=== PATIENT | male | born 1930 | race Caucasian/White ===

== ENCOUNTER 2017-08-27 11:11 | Emergency (ER) | payer MEDICARE ==
[~2017-08-27] VITALS: Ht 182.9 cm; Wt 83.0 kg
[2017-08-27] MEDS ORDERED: L.E.T SOLUTION TP ONE ×2 (12:00→12:42)
[2017-08-27] MEDS ORDERED: DIPH,PERTUSS(ACELL),TET VAC/PF 0.5 ML IM-VACC ONE ×2 (12:00→12:42)
[2017-08-27] MEDS ORDERED: LIDOCAINE 1%, 20ML ONE (13:41)
[2017-08-27] MEDS ORDERED: LIDOCAINE 1%, 20ML SQ ONE (14:00)
[2017-08-27] MEDS ORDERED: BACITRACIN ZINC OINT 500U/GM, 0.9 GM ONE (14:24)
[2017-08-27] MEDS ORDERED: BACITRACIN ZINC OINT 500U/GM, 0.9 GM TP SCH (14:30)
[2017-08-27 14:34] VITALS: BP 164/78
== END 2017-08-27 14:36 | disposition home or self-care (01) ==
LOC: ED 13:01
DX: S01.111A Laceration without foreign body of right eyelid and periocular area, initial encounter (principal); I10 Essential (primary) hypertension; W01.0XXA Fall on same level from slipping, tripping and stumbling without subsequent striking against object, initial encounter; Y93.01 Activity, walking, marching and hiking; Y92.009 Unspecified place in unspecified non-institutional (private) residence as the place of occurrence of the external cause; Y99.9 Unspecified external cause status
CPT/HCPCS: 12011; 90471; 90715

== ENCOUNTER 2017-09-03 12:16 | Emergency (ER) | payer MEDICARE ==
[~2017-09-03] VITALS: Ht 182.9 cm; Wt 82.4 kg
[2017-09-03 12:20] VITALS: BP 183/85
[2017-09-03] MEDS ORDERED: BACITRACIN ZINC OINT 500U/GM, 0.9 GM ONE (12:51)
== END 2017-09-03 13:06 | disposition home or self-care (01) ==
LOC: ED 13:05
DX: S01.111D Laceration without foreign body of right eyelid and periocular area, subsequent encounter (principal); I10 Essential (primary) hypertension; X58.XXXD Exposure to other specified factors, subsequent encounter
CPT/HCPCS: 99282